=== PATIENT | female | born 1980 ===

== ENCOUNTER 2024-12-22 10:39 | Emergency (ER) | payer OTHER ==
[~2024-12-22] VITALS: Ht 160 cm; Wt 81.6 kg
[2024-12-22 11:58] VITALS: TEMP 97.8
[2024-12-22 12:04] LABS: BASOPHILS # (AUTO) 0.03 K/uL (0.00-0.20); BASOPHILS % (AUTO) 0.5 % (0.0-5.0); EOSINOPHILS # (AUTO) 0.15 K/uL (0.00-0.70); EOSINOPHILS % (AUTO) 2.3 % (0.0-8.0); HEMATOCRIT 30.7 % (36-48); IMMATURE GRANULOCYTE ABSOLUTE 0.04 K/uL (0-1); LYMPHOCYTES # (AUTO) 1.3 K/uL (1.0-4.8); LYMPHOCYTES % (AUTO) 19.8 % (21.0-51.0); MEAN CORPUSCULAR HEMOGLOBIN 21.5 pg (27.0-33.0); MEAN CORPUSCULAR HGB CONC 28.7 g/dL (32.0-36.0); MEAN CORPUSCULAR VOLUME 74.9 fL (79-99); MONOCYTES # (AUTO) 0.4 K/uL (0.1-1.0); MONOCYTES % (AUTO) 5.7 % (3.0-13.0); NEUTROPHILS # (AUTO) 4.6 K/uL (1.8-7.7); NEUTROPHILS % (AUTO) 71.1 % (40.0-77.0); PLATELET COUNT (AUTO) 274 K/uL (130-400); RED CELL DISTRIBUTION WIDTH 17.2 % (11.0-15.5); WHITE BLOOD COUNT (AUTO) 6.5 K/uL (4.8-10.8)
[2024-12-22] MEDS: 0.9%NACL 1000ML 1,000 ML IV ONE (12:08)
[2024-12-22 12:10] LABS: APPEARANCE,URINE CLEAR (CLEAR); BILIRUBIN,URINE NEGATIVE (NEGATIVE); COLOR,URINE COLORLESS (YELLOW); GLUCOSE, URINE (UA) NEGATIVE (NEGATIVE); KETONES,URINE NEGATIVE (NEGATIVE); LEUKOCYTE ESTERASE ,URINE NEGATIVE Leu/uL (NEGATIVE); NITRATE,URINE NEGATIVE (NEGATIVE); OCCULT BLOOD,URINE NEGATIVE (NEGATIVE); PH,URINE 7.5 (5.0-8.0); PROTEIN,URINE NEGATIVE (NEGATIVE); UROBILINOGEN,URINE 0.2 mg/dL (0.2-1.0)
[2024-12-22 12:12] LABS: ADD UA MICROSCOPIC NO
[2024-12-22 12:16] LABS: CREATININE 0.9 mg/dL (0.5-1.0); POTASSIUM 3.8 mmol/L (3.5-5.1)
[2024-12-22 12:22] LABS: ALBUMIN 3.5 g/dL (3.5-5.0); BILIRUBIN,DIRECT 0.1 mg/dL (0.0-0.3); BILIRUBIN,TOTAL 0.4 mg/dL (0.2-1.0)
[2024-12-22] MEDS: ondanSETRON 4MG INJ IVP ONE (13:48)
[2024-12-22 13:49] VITALS: BP 166/84; PULSE 78; RESP 16; O2SAT 95
[2024-12-22] MEDS: morPHINE 2 MG SYG IVP ONE (13:49)
--- NOTE | 2024-12-22 14:30 | ERN ---
General Chief Complaint: Rectal Bleed Stated Complaint: UC FLARE UP Time Seen by MD: 11:05 Time Seen by Midlevel: 11:05 Source: patient History of Present Illness Initial Comments This is a 44-year-old female with a past medical history of chronic anemia and ulcerative colitis presenting to the emergency department for rectal bleeding. The bleeding is light and is only present with wiping. This started yesterday. Denies any other symptoms. Allergies: Uncoded Allergies: NIASTATIN (Allergy, Unknown, 12/22/24) Past Medical History Past Medical History: GERD, IBS Past Surgical History: Cholecystectomy, Other ROS Dictation CONSTITUTIONAL: Negative except for HPI HEAD/FACE: Negative except for HPI EENT: Negative except for HPI RESPIRATORY: Negative except for HPI GASTROINTESTINAL/ABDOMINAL: Negative except for HPI GENITOURINARY: Negative except for HPI MUSCULOSKELETAL: Negative except for HPI INTEGUMENTARY: Negative except for HPI NEUROLOGICAL/PSYCH: Negative except for HPI HEMATOLOGIC/LYMPHATIC: Negative except for HPI All Systems Negative, Except as noted above. 13 point review of systems assessed and all negative except for above. Physical Exam Physical Exam Dictation Vital Signs reviewed General Appearance: Alert, oriented x 3, no acute distress, well developed, nourished. Head and Face: non-traumatic. Eyes: PERRL, pink conjunctivas, eyelid no trauma, anterior chamber with arcus senilis. Ears: Pinnas intact and no signs of trauma or erythema ear canals clear and no discharge TM no erythema Nose: No discharge, no bleeding. Oropharynx: Mouth normal, tongue pink, pharynx clear,no erythema, tonsils no exudates, no abscesses noted, mucous membrane moist Neck: Supple, non-tender, no thyromegaly, no masses, no JVD, no bruits Breast:Deferred Chest:No tenderness, no crepitus, no paradoxical movement, no retractions Lungs:Clear, well-ventilated, symmetric, no rales, no wheezing, no rhonchi, no stridor, good breath sounds bilaterally Heart: Regular rate, regular rhythm, no murmur, no gallops Vascular: no peripheral edema, Abdomen: Soft, positive bowel sounds, nondistended, no guarding, nontender, no rebound, no masses no hepatomegaly, no splenomegaly, no Delgado's sign, no hernias. Rectal: Deferred Genital: Deferred Neurological: Normal speech, motor function intact, sensory function intact Musculoskeletal: Neck nontender, full range of motion, back nontender, full range of motion, Extremities: nontender, full range of motion Skin: Color pink, dry, no turgor, no rash, no lacerations, no abrasions, no contusions. Lymphatic: Deferred Results Laboratory and Microbiology Lab and Micro Result Laboratory Tests Test 12/22/24 11:56 White Blood Count 6.5 K/uL (4.8-10.8) Red Blood Count 4.10 MIL/uL (4.00-5.50) Hemoglobin 8.8 g/dL (12.0-16.0) L Hematocrit 30.7 % (36-48) L Mean Corpuscular Volume 74.9 fL (79-99) L Mean Corpuscular Hemoglobin 21.5 pg (27.0-33.0) L Mean Corpuscular Hemoglobin Concent 28.7 g/dL (32.0-36.0) L Red Cell Distribution Width 17.2 % (11.0-15.5) H Platelet Count 274 K/uL (130-400) Mean Platelet Volume 9.3 fL (7.5-10.5) Immature Granulocyte % (Auto) 0.6 % (0-1) Neutrophils (%) (Auto) 71.1 % (40.0-77.0) Lymphocytes (%) (Auto) 19.8 % (21.0-51.0) L Monocytes (%) (Auto) 5.7 % (3.0-13.0) Eosinophils (%) (Auto) 2.3 % (0.0-8.0) Basophils (%) (Auto) 0.5 % (0.0-5.0) Neutrophils # (Auto) 4.6 K/uL (1.8-7.7) Lymphocytes # (Auto) 1.3 K/uL (1.0-4.8) Monocytes # (Auto) 0.4 K/uL (0.1-1.0) Eosinophils # (Auto) 0.15 K/uL (0.00-0.70) Basophils # (Auto) 0.03 K/uL (0.00-0.20) Absolute Immature Granulocyte (auto 0.04 K/uL (0-1) Nucleated Red Blood Cells 0.0 % (0.0-0.19) Red Blood Cell Morphology See comments Urine Color COLORLESS (YELLOW) Urine Appearance CLEAR (CLEAR) Urine pH 7.5 (5.0-8.0) Urine Specific [place] 1.006 (1.001-1.031) Urine Protein NEGATIVE mg/dL (NEGATIVE) Urine Glucose (UA) NEGATIVE mg/dL (NEGATIVE) Urine Ketones NEGATIVE mg/dL (NEGATIVE) Urine Occult Blood NEGATIVE (NEGATIVE) Urine Nitrate NEGATIVE (NEGATIVE) Urine Bilirubin NEGATIVE mg/dL (NEGATIVE) Urine Urobilinogen 0.2 mg/dL (0.2-1.0) Urine Leukocyte Esterase NEGATIVE Kervin/uL Sodium Level 139 mmol/L (136-145) Potassium Level 3.8 mmol/L (3.5-5.1) Chloride Level 104 mmol/L (101-111) Carbon Dioxide Level 27 mmol/L (21-32) Blood Urea Nitrogen 11 mg/dL (7-18) Creatinine 0.9 mg/dL (0.5-1.0) Glomerular Filtration Rate Calc 80 mL/min (>90) Random Glucose 102 mg/dL (70-105) Total Calcium 8.8 mg/dL (8.5-10.1) Total Bilirubin 0.4 mg/dL (0.2-1.0) Direct Bilirubin 0.1 mg/dL (0.0-0.3) Aspartate Amino Transf (AST/SGOT) 16 U/L (10-37) Alanine Aminotransferase (ALT/SGPT) 15 U/L (12-78) Alkaline Phosphatase 75 U/L (50-136) Total Protein 7.0 g/dL (6.0-8.3) Albumin 3.5 g/dL (3.5-5.0) Lipase 35 U/L (16-77) Serum Test, Qualitative NEGATIVE (NEGATIVE) Labs Reviewed?: Yes MDM MDM: 44-year-old female with a past medical history ulcerative colitis and chronic anemia presenting to the emergency department with rectal bleeding described as light in nature. No abdominal pain reported no fever. Physical examination is unremarkable. Abdominal examination is benign. Rectal examination was deferred per patient. CBC shows hemoglobin of 8.8 however when discussing previous history with the patient she reports a history of chronic anemia. She states her hemoglobin is normally at six. She denies any generalized body weakness, fatigue, or any other symptoms at this time. Chemistries are unremarkable. No need for CT scan given unremarkable physical examination and unremarkable vital signs. Patient will be discharged home with outpatient follow up. Differential diagnosis: Ulcerative colitis flare-up, chronic anemia, electrolyte abnormality, hemorrhoids There are no social concerns with this patient. Prescription drug management Prescriptions will include: None Medical management and examination interpretation discussions were had by me with other qualified healthcare professionals as indicated for the patient's care. ED Course Orders Procedure Category Date Status Time Cbc With Differential LAB 12/22/24 Complete 11:20 Lipase LAB 12/22/24 Complete 11:20 Urinalysis Profile LAB 12/22/24 Complete 11:20 Basic Metabolic Panel LAB 12/22/24 Complete 11:20 Hepatic Function Panel LAB 12/22/24 Complete 11:52 Testing, LAB 12/22/24 Complete Serum Hcg 11:52 0.9%Nacl 1000ml (Ns PHA 12/22/24 Complete 1000ml) 12:00 Morphine 2mg Syg PHA 12/22/24 Complete (Morphine 2mg Syg) 13:30 Ondansetron 4mg Inj PHA 12/22/24 Complete (Zofran 4mg Inj) 13:30 Current Medications Medications (Trade) Dose Ordered Sig/Lib[place]ad Route PRN Reason Start Time Stop Time Status Last Admin Dose Admin Morphine Sulfate (morPHINE 2MG SYG) 2 mg ONCE ONCE IVP 12/22/24 13:30 12/22/24 13:31 DC 12/22/24 13:49 Ondansetron HCl (zoFRAN 4MG INJ) 4 mg ONCE ONCE IVP 12/22/24 13:30 12/22/24 13:31 DC 12/22/24 13:48 Sodium Chloride 1,000 ml @ 0 mls/hr ONCE ONCE IV 12/22/24 12:00 12/22/24 12:01 DC 12/22/24 12:08 Vital Signs Date Time Temp Pulse Resp B/P (MAP) Pulse Ox O2 Delivery O2 Flow Rate FiO2 12/22/24 13:49 78 16 166/84 95 Room Air* 0 21 12/22/24 11:58 97.9 72 16 171/95 99 Room Air* 0 21 12/22/24 11:14 98.4 80 20 161/88 100 Room Air DX & DISP Disposition: Discharge Departure Impression: Primary Impression: Ulcerative colitis Additional Impression: Chronic anemia Condition: Stable Additional Instructions: Your hemoglobin level today was 8.8. The remainder of your blood work is unremarkable. You will need to follow up with your primary care doctor for a potential referral to GI outpatient. I have given you three different GI specialist in the area that you may follow up with. Referrals: SELF,REFERRAL (PCP) GALE ANNA MD, OWEN S MD SAMUEL, SANDEEP T MD I have reviewed the case, and I agree with, Diagnosis and Plan I performed the substantive portion of the visit. I have reviewed and personally made and approve the management plan that is documented in the note by myself or the MICAELA. I acknowledge for responsibility for the patient's management plan. HELENA FORREST Dec 22, 2024 14:30
== END 2024-12-22 14:48 | disposition home or self-care (01) ==
LOC: EDH 10:39
DX: K51.911 Ulcerative colitis, unspecified with rectal bleeding (principal); D64.9 Anemia, unspecified; Z90.49 Acquired absence of other specified parts of digestive tract
CPT/HCPCS: 99284; 96374; 96361; 96375; 80076; 80048; 84703; 83690; 85025; 81003; 36415; J2270; J7030; J2405